=== PATIENT | female | born 1985 | race Caucasian/White ===

== ENCOUNTER 2024-10-09 14:13 | Emergency (ER) | payer OTHER ==
[~2024-10-09] VITALS: Ht 157.5 cm; Wt 63.5 kg
[2024-10-09] MEDS ORDERED: ACETAMINOPHEN 325 MG TABLET ONE (15:28)
[2024-10-09] MEDS ORDERED: KETOROLAC TROMETHAMINE INJ 30 MG/ML VIAL ONE (15:28)
[2024-10-09] MEDS: ACETAMINOPHEN 325 MG TABLET PO ONE (15:32)
[2024-10-09] MEDS: KETOROLAC TROMETHAMINE INJ 30 MG/ML VIAL IM ONE (15:32)
[2024-10-09 15:50] VITALS: BP 158/91; TEMP 98.3; O2SAT 99
== END 2024-10-09 15:50 | disposition home or self-care (01) ==
LOC: ER 14:20
DX: M25.561 Pain in right knee (principal); F17.200 Nicotine dependence, unspecified, uncomplicated; Z32.02 Encounter for pregnancy test, result negative; Z88.0 Allergy status to penicillin; Z88.5 Allergy status to narcotic agent
CPT/HCPCS: 29505; 99283; J1885